=== PATIENT | female | born 1990 | race African-American/Black ===

== ENCOUNTER 2025-04-16 19:26 | Emergency (ER) | payer MEDICAID ==
[~2025-04-16] VITALS: Ht 170.2 cm; Wt 101.2 kg
[2025-04-16 19:45] VITALS: TEMP 37.2; O2SAT 99
[2025-04-16] MEDS ORDERED: CETI10CA11 MT (20:13)
[2025-04-16] MEDS ORDERED: GUAI-450 MT (20:13)
[2025-04-16] MEDS ORDERED: IBUP-1455 MT (20:13)
[2025-04-16] MEDS: IBUPROFEN 600MG TABLET PO ONE (20:27)
[2025-04-16 20:28] VITALS: BP 100/67; PULSE 83; RESP 16; O2SAT 99
== END 2025-04-16 20:29 | disposition home or self-care (01) ==
LOC: ER 19:26
DX: J30.9 Allergic rhinitis, unspecified (principal); J06.9 Acute upper respiratory infection, unspecified; B97.89 Other viral agents as the cause of diseases classified elsewhere; I10 Essential (primary) hypertension; E78.00 Pure hypercholesterolemia, unspecified; Z88.0 Allergy status to penicillin
CPT/HCPCS: 99283